=== PATIENT | female | born 1980 | race Caucasian/White ===

== ENCOUNTER 2018-01-27 20:03 | Inpatient (IN) | payer OTHER ==
[2018-01-27] MEDS: SOD CHLORIDE 0.9% 1,000 ML IV (22:21)
[2018-01-28] MEDS ORDERED: ONDANSETRON 4 MG INJ IV (02:00)
[2018-01-28] MEDS ORDERED: ACETAMINOPHEN 325 MG TAB PO (02:00)
[2018-01-28] MEDS ORDERED: NACL 0.9% 3 ML SYG IV (02:00)
[2018-01-28 02:33] LABS: ADD MAN DIFF? NO
[2018-01-28 02:35] LABS: BASOPHILS % 0.3 % (0.0-2.0); EOSINOPHILS # 0.1 10^3/ul (0.0-0.5); EOSINOPHILS % 1.2 % (0.0-7.0); HEMATOCRIT 30.5 % (37.0-47.0); HEMOGLOBIN 10.9 g/dl (12.0-16.0); LYMPHOCYTES # 1.3 10^3/ul (0.8-2.9); LYMPHOCYTES % 20.8 % (15.0-51.0); MEAN CORPUSCULAR HGB CONC 35.7 g/dl (32.0-37.0); MEAN PLATELET VOLUME 11.4 fl (7.4-10.4); MONOCYTES % 15.8 % (0.0-11.0); NEUTROPHIL # 3.7 10^3/ul (1.6-7.5); NEUTROPHILS % 61.6 % (39.0-77.0); PLATELET COUNT 291 10^3/UL (140-415); RED BLOOD COUNT 3.63 10^6/ul (4.20-5.40); RED CELL DISTRIBUTION WIDTH 13.9 % (11.5-14.5)
[2018-01-28 02:50] LABS: HEMOGLOBIN A1C 4.4 % (0-5.9)
[2018-01-28] MEDS: ALBUTEROL/IPRATROPIUM (NEB) 3 ML AMP HHN (02:56)
[2018-01-28 03:09] LABS: MAGNESIUM 2.2 mg/dl (1.7-2.5)
[2018-01-28 03:09] LABS: CHOL/HDL RATIO 5.9 RATIO; CHOLESTEROL 227 mg/dl (100-200); HDL CHOLESTEROL 38 mg/dl (34-88); LDL CHOLESTEROL,CALCULATED 157 mg/dl; TRIGLYCERIDES 162 mg/dl (0-149)
[2018-01-28 03:55] LABS: THYROID STIMULATING HORMONE 0.479 MIU/L (0.465-4.680)
[2018-01-28] MEDS: SOD CHLORIDE 0.9% 1,000 ML IV ×2 (06:10→13:02)
[2018-01-28 10:36] LABS: ANION GAP 14 (5-13); BLOOD UREA NITROGEN 46 mg/dl (7-20); CALCIUM 9.1 mg/dl (8.4-10.2); CARBON DIOXIDE 16 mmol/L (21-31); CHLORIDE 109 mmol/L (97-110); CREATININE 3.98 mg/dl (0.44-1.00); Estimated GFR 13 mL/min (>60); GLUCOSE 151 mg/dl (70-220); SODIUM 139 mmol/L (135-144)
[2018-01-28 10:40] LABS: POTASSIUM 2.9 mmol/L (3.5-5.1)
[2018-01-28] MEDS: POTASSIUM CHLORIDE (SR) 20 MEQ TAB PO ×2 (11:48→14:33)
[2018-01-28 13:42] LABS: ALANINE AMINOTRANSFERASE 13 IU/L (13-69); ALBUMIN 4.1 g/dl (3.3-4.9); ALKALINE PHOSPHATASE 55 IU/L (42-121); ASPARTATE AMINO TRANSFERASE 14 IU/L (15-46); TOTAL PROTEIN 7.1 g/dl (6.1-8.1)
[2018-01-28 13:46] LABS: ADD UMIC YES; UR ASCORBIC ACID NEGATIVE (NEGATIVE); UR BACTERIA MODERATE /HPF (NONE SEEN); UR BILIRUBIN (Dip) NEGATIVE (NEGATIVE); UR BLOOD (Dip) 2+ mg/dL (NEGATIVE); UR CLARITY CLOUDY (CLEAR); UR COLOR YELLOW (YELLOW); UR GLUCOSE (Dip) NEGATIVE (NEGATIVE); UR KETONES (Dip) NEGATIVE (NEGATIVE); UR LEUKOCYTE ESTERASE (Dip) 3+ Leu/ul (NEGATIVE); UR NITRITE (Dip) NEGATIVE (NEGATIVE); UR NONSQUAMOUS EPITHELIAL CELL 2 /HPF (NONE SEEN); UR RBC 59 /HPF (0-5); UR SPECIFIC GRAVITY (Dip) 1.006 (1.003-1.030); UR SQUAMOUS EPITHELIAL CELL FEW /HPF (FEW); UR TOTAL PROTEIN (Dip) 1+ mg/dl (NEGATIVE); UR UROBILINOGEN (Dip) NEGATIVE (NEGATIVE); UR WBC > 182 /HPF (0-5)
[2018-01-28 13:49] LABS: SODIUM,URINE RANDOM 14 mmol/L (30-90)
[2018-01-28 13:50] LABS: POTASSIUM,URINE RANDOM < 9.7 mmol/L (25-125)
[2018-01-28 14:06] LABS: AADO2 Arterial 29.6 mmHg (7.0-24.0); Allen Test ACCEPTAB; Arterial Base Excess -9.4 mmol/L (-3.0-3); Arterial Blood Gas Oxygen Sat 96.8 mmHG (95.0-98.0); Arterial COHb 0.1 % (0.0-3.0); Arterial Fraction of Oxyhgb 96.5 % (93.0-99.0); Arterial HCO3 16.3 mmol/L (22.0-26.0); Arterial MetHb 0.2 % (0.0-1.5); Arterial pCO2 34.9 mmhg (35-45); MODE ROOM AIR; Site Right Radial
[2018-01-28 14:10] LABS: POTASSIUM 3.3 mmol/L (3.5-5.1)
[2018-01-28 14:10] LABS: CREATINE KINASE 26 IU/L (23-200); PHOSPHORUS 1.9 mg/dl (2.5-4.9)
[2018-01-28 14:12] LABS: INR 1.08; PROTIME 14.1 Sec (11.9-14.9); PT RATIO 1.1
[2018-01-28 14:13] LABS: PARTIAL THROMBOPLASTIN TIME 35.9 Sec (23.0-35.0)
[2018-01-28 14:36] LABS: SODIUM 140 mmol/L (135-144)
[2018-01-28] MEDS: POTASSIUM PHOSPHATE 15 MM in SOD CHLORIDE 0.9% 250 ML IVPB (20:00)
[2018-01-28] MEDS: SODIUM BICARBONATE (IV ADD) 140 MEQ in DEXTROSE 5% 1,000 ML IV (20:00)
[2018-01-28 20:29] LABS: CREATININE,URINE RANDOM 65.47 mg/dl (20-320); PROTEIN/CREAT RATIO 0.96 RATIO
[2018-01-29 06:17] LABS: ADD MAN DIFF? NO
[2018-01-29 06:33] LABS: WHITE BLOOD COUNT 5.4 10^3/ul (4.8-10.8)
[2018-01-29 06:33] LABS: BASOPHILS % 0.2 % (0.0-2.0); EOSINOPHILS # 0.1 10^3/ul (0.0-0.5); EOSINOPHILS % 2.4 % (0.0-7.0); HEMATOCRIT 30.8 % (37.0-47.0); HEMOGLOBIN 10.6 g/dl (12.0-16.0); LYMPHOCYTES # 2.1 10^3/ul (0.8-2.9); LYMPHOCYTES % 39.4 % (15.0-51.0); MEAN CORPUSCULAR HEMOGLOBIN 29.6 pg (29.0-33.0); MEAN CORPUSCULAR HGB CONC 34.4 g/dl (32.0-37.0); MEAN PLATELET VOLUME 11.9 fl (7.4-10.4); MONOCYTE # 0.8 10^3/ul (0.3-0.9); MONOCYTES % 15.3 % (0.0-11.0); NEUTROPHIL # 2.3 10^3/ul (1.6-7.5); NEUTROPHILS % 42.1 % (39.0-77.0); PLATELET COUNT 288 10^3/UL (140-415); RED BLOOD COUNT 3.58 10^6/ul (4.20-5.40)
[2018-01-29 06:53] LABS: IRON 126 ug/dl (35-150)
[2018-01-29 06:58] LABS: ANION GAP 12 (5-13); BLOOD UREA NITROGEN 42 mg/dl (7-20); CALCIUM 8.7 mg/dl (8.4-10.2); CARBON DIOXIDE 15 mmol/L (21-31); CHLORIDE 116 mmol/L (97-110); CREATININE 3.82 mg/dl (0.44-1.00); Estimated GFR 13 mL/min (>60); GLUCOSE 105 mg/dl (70-220); PHOSPHORUS 2.8 mg/dl (2.5-4.9); POTASSIUM 3.8 mmol/L (3.5-5.1); SODIUM 143 mmol/L (135-144)
[2018-01-29 07:02] LABS: % IRON SATURATION 63 % SAT (22-52); TOTAL IRON BINDING CAPACITY 200 ug/dl (241-421)
[2018-01-29] MEDS: POTASSIUM CHLORIDE (SR) 10 MEQ TAB PO (09:38)
[2018-01-29] MEDS: SODIUM BICARBONATE (IV ADD) 140 MEQ in DEXTROSE 5% 1,000 ML IV ×2 (10:00→13:49)
[2018-01-29] MEDS: BISACODYL 10 MG SUPP PR (15:18)
[2018-01-29] MEDS ORDERED: DOCUSATE SODIUM 100 MG CAP PO (21:00)
== END 2018-01-29 18:30 | disposition home or self-care (01) | DRG 683 ==
LOC: TEL 20:03
PROVIDERS: Hospitalist
DX: N17.9 Acute kidney failure, unspecified (principal); N39.0 Urinary tract infection, site not specified; E87.2 Acidosis; D25.9 Leiomyoma of uterus, unspecified; Z87.891 Personal history of nicotine dependence; E86.0 Dehydration; E78.5 Hyperlipidemia, unspecified; N13.30 Unspecified hydronephrosis
CPT/HCPCS: 36600; 74176; 76775; 80048; 80061; 80076; 81001; 81003; 82436; 82550; 82570; 82607; 82728; 82803; 83036; 83540; 83735; 84100; 84132; 84133; 84295; 84300; 84443; 85025; 85610; 85730; 87081; 87086; 94664